=== PATIENT | female | born 1945 | race Caucasian/White ===

== ENCOUNTER 2022-06-09 10:17 | Emergency (ER) | payer OTHER ==
[2022-06-09 11:34] LABS: BASOPHIL 0.3 % (0-2); EOSINOPHIL 0.3 % (0-7); HCT 40.7 % (37.0-47.0); HGB 13.5 g/dl (12.5-16.0); LYMPHOCYTE 16.4 % (15-48); MCH 30.2 pg (25.0-31.0); MCHC 33.2 g/dL (32.0-36.0); MCV 91.1 fL (78.0-100.0); MONOCYTE 7.2 % (0-12); MPV 9.4 fL (6.0-9.5); NEUTROPHIL 75.3 % (41-80); NRBC 0; PLT 291 K/uL (150-400); RBC 4.47 M/uL (4.20-5.40); RDW 12.2 % (11.5-14.0); WBC 7.8 K/uL (4.0-10.5)
[2022-06-09 11:51] LABS: BUN/CREAT RATIO (CALC) 17.1 RATIO; CREATININE 1.05 mg/dL (0.51-0.95)
[2022-06-09 12:22] LABS: CLARITY CLEAR (CLEAR); COLOR YELLOW (YELLOW)
[2022-06-09 12:23] LABS: BILIRUBIN NEGATIVE (NEGATIVE); BLOOD TRACE-INTACT Ery/uL (NEGATIVE); GLUCOSE (U) NORMAL (NORMAL); LEUKOCYTES 3+ Leu/uL (NEGATIVE); NITRITE NEGATIVE (NEGATIVE); PROTEIN NEGATIVE (NEGATIVE); UROBILINOGEN 0.2 mg/dL (0.2-1.0)
[2022-06-09 12:25] LABS: BACTERIA 3+; URINARY RBC RARE
[2022-06-09] MEDS ORDERED: KEFLEX250 MG PO (13:07)
== END 2022-06-09 13:49 | disposition home or self-care (01) ==
LOC: FER 10:17
PROVIDERS: Emergency Medicine
DX: S40.011A Contusion of right shoulder, initial encounter (principal); F03.90 Unspecified dementia, unspecified severity, without behavioral disturbance, psychotic disturbance, mood disturbance, and anxiety; N39.0 Urinary tract infection, site not specified; W19.XXXA Unspecified fall, initial encounter
CPT/HCPCS: 36415; 70450; 73030; 73502; 80048; 81001; 84484; 85025; 87076; 87088; 87186; 93005